=== PATIENT | female | born 1970 | race Caucasian/White ===

== ENCOUNTER 2018-11-23 15:44 | Emergency (ER) | payer BC, OTHER ==
[~2018-11-23] VITALS: Ht 142.2 cm; Wt 63.6 kg
[~2018-11-23 15:44] MED LIST: BENT20TA; PROT1TAB2; SOMA250T
[2018-11-23] MEDS ORDERED: CYMB1CAP4 PO (15:51)
[2018-11-23] MEDS ORDERED: LISI-538 PO (15:51)
[2018-11-23] MEDS ORDERED: METOCLOPRAMIDE INJ 10MG/2ML VIAL (J2765) IV ONE (17:15)
[2018-11-23] MEDS ORDERED: NS 1,000 ML IV ONE (17:15)
[2018-11-23] MEDS: GASTROGRAFIN SOLUTION 30ML PO SCH ×2 (17:54→18:22)
[2018-11-23 17:57] LABS: BASO # 0.1 10^3/uL (0.0-0.2); BASO % 1.1 % (0.0-1.0); EOS # 0.2 10^3/uL (0.0-0.50); EOS % 2.4 % (0.0-3.0); HEMATOCRIT 43.1 % (36.0-47.0); HEMOGLOBIN 14.5 g/dl (12.0-15.5); LYMPH % 33.7 % (24.0-44.0); MEAN CORPUSCULAR HEMOGLOBIN 30.1 pg (27.0-33.0); MEAN CORPUSCULAR HGB CONC 33.6 g/dl (32.0-36.5); MEAN CORPUSCULAR VOLUME 89.6 fl (80.0-96.0); MONO # 0.7 10^3/uL (0.0-0.8); MONO % 8.1 % (0.0-5.0); NEUTROPHILS # 4.9 10^3/uL (1.8-7.7); NEUTROPHILS % 54.5 % (36.0-66.0); PLATELET COUNT, AUTOMATED 310 10^3/uL (150-450); RED BLOOD COUNT 4.81 10^6/uL (4.00-5.40); WHITE BLOOD COUNT 8.9 10^3/uL (4.0-10.0)
[2018-11-23 18:31] LABS: ALBUMIN 3.8 GM/DL (3.2-5.2); ALT/SGPT 72 U/L (12-78); BILIRUBIN,DIRECT 0.1 MG/DL (0.0-0.2); BILIRUBIN,TOTAL 0.2 MG/DL (0.2-1.0); BLOOD UREA NITROGEN 11 MG/DL (7-18); CALCIUM LEVEL 9.3 MG/DL (8.5-10.1); CARBON DIOXIDE LEVEL 26 MEQ/L (21-32); CHLORIDE LEVEL 106 MEQ/L (98-107); CREATININE FOR GFR 0.64 MG/DL (0.55-1.30); GLOMERULAR FILTRATION RATE > 60.0 (>58); GLUCOSE, FASTING 90 MG/DL (70-100); LIPASE 66 U/L (73-393); POTASSIUM SERUM 4.2 MEQ/L (3.5-5.1); SODIUM LEVEL 139 MEQ/L (136-145); TOTAL PROTEIN 7.3 GM/DL (6.4-8.2)
[2018-11-23] MEDS ORDERED: ISOVUE-370 76% 100ML VIAL (Q9967) As Ordered ONE (19:42)
--- NOTE | 2018-11-23 21:15 | REPVR ---
EXAM: CT Abdomen and Pelvis With Contrast EXAM DATE/TIME: 11/23/2018 8:08 PM CLINICAL HISTORY: 48 years old, female; Abdominal pain; Localized; Left lower quadrant (llq); Additional info: Llq pain TECHNIQUE: Imaging protocol: Axial computed tomography images of the abdomen and pelvis with intravenous contrast. Coronal and sagittal reformatted images were created and reviewed. Radiation optimization: All CT scans at this facility use at least one of these dose optimization techniques: automated exposure control; mA and/or kV adjustment per patient size (includes targeted exams where dose is matched to clinical indication); or iterative reconstruction. Contrast material: ISOVUE 370; Contrast volume: 100 ml; Contrast route: IV; COMPARISON: CT ABD PELVIS W/O FOL BY WIT 03/25/2012 11:13 AM FINDINGS: Liver: Normal. No mass. Gallbladder and bile ducts: Surgical clips in the gallbladder fossa. The gallbladder is absent. Common bile duct measures 9 mm. Pancreas: Normal. No ductal dilation. Spleen: Normal. No splenomegaly. Adrenals: Normal. No mass. Kidneys and ureters: 5 mm calculus in the lower pole of the left kidney with a density measurement of 514 H. Simple cyst measuring 1.2 cm in the upper pole of the left kidney. Stomach and bowel: Sigmoid colonic diverticula. Prominence of the vasa recti at the level of the sigmoid colon. Mild wall thickening of the sigmoid colon and mid and distal descending colon. Appendix: No evidence of appendicitis. Intraperitoneal space: Normal. No free air. No significant fluid collection. Vasculature: Normal. No abdominal aortic aneurysm. Lymph nodes: Prominent lymph nodes noted within the mesenteric fat at the base of the cecum. Bladder: Unremarkable as visualized. Reproductive: Calcified uterine fibroids are present. Bones/joints: Rotatory levoscoliosis of the lumbar spine. Straightening of the normal lumbar lordosis with grade 1 spondylolisthesis of L4-5 (3.5 mm of retrolisthesis of L5 with respect to L4. Moderately advanced secondary degenerative disc disease within the lumbar spine. Soft tissues: There is an umbilical hernia containing fat. The hernia measures 7 mm at its base. No signs of strangulation IMPRESSION: 1. Mild but diffuse colonic wall thickening involving the descending colon and sigmoid colon with prominence of the vasa recta. Appearance suggests the possibility of a colitis/inflammatory bowel disease. 2. Scattered colonic diverticula. Note that the wall thickening/minimal stranding of the pericolonic fat is not centered around diverticula but rather appears diffuse. 3. Nonobstructing calculus in the lower pole of the left kidney is smaller since that seen in 2012 4. Simple cyst in the left kidney. COMMENT: Consistent with the [employer]'s Incidental Findings Committee Report (J Am Carlos Radiol 2010): Unless the patient's specific circumstances suggest otherwise, any liver lesion 0.5 cm or less, any cystic kidney lesion less than 1.0 cm, and/or any adrenal lesion 1.0 cm or less not otherwise characterized in this report as possessing suspicious or indeterminate imaging features is/are highly likely to be benign and do not require follow-up imaging or biopsy. Electronically signed by: Sandee David On 11/23/2018 21:14:47 PM
[2018-11-23] MEDS ORDERED: CIPROFLOXACIN 500 MG TAB PO ONE (21:45)
[2018-11-23] MEDS ORDERED: metroNIDAZOLE (FLAGYL) 500 MG TAB PO ONE (21:45)
[2018-11-23] MEDS ORDERED: CIPR-249 PO (21:49)
[2018-11-23] MEDS ORDERED: FLAG500T PO (21:50)
[2018-11-23 22:12] VITALS: BP 136/78
== END 2018-11-23 22:14 | disposition home or self-care (01) ==
LOC: M ED 15:44
DX: K52.9 Noninfective gastroenteritis and colitis, unspecified (principal); I10 Essential (primary) hypertension; F33.9 Major depressive disorder, recurrent, unspecified; F41.9 Anxiety disorder, unspecified; N80.9 Endometriosis, unspecified; Z87.442 Personal history of urinary calculi; Z79.899 Other long term (current) drug therapy; Z88.5 Allergy status to narcotic agent; Z88.8 Allergy status to other drugs, medicaments and biological substances
CPT/HCPCS: 74177; 80048; 80076; 81001; 83690; 84702; 85025; 96361; 96374; 99284; J2765; Q9963; Q9967